=== PATIENT | male | born 1950 | race Caucasian/White ===

== ENCOUNTER 2018-04-06 12:06 | Inpatient (IN) | payer MEDICARE, SELFPAY ==
[2018-03-28 09:55] VITALS: BMI 28.2
[2018-04-06] VITALS (16 sets, daily range): BP systolic 117–156; BP diastolic 38–86; PULSE 86–101; RESP 8–95; TEMP 36.4–36.7; O2SAT 94–100; BMI 28.2
--- NOTE | 2018-04-06 11:55 | SUR.PREOP ---
1000 - pt. called pre-op to inform this RN (RN that answered the phone) that he (the pt.) was told to call pre-op and report blood sugars; pt. stated he (the pt) woke up and checked his sugar and was 190, pt. administered 15 units 70/30 at that time, at 0957 pt. rechecked blood sugar and got 186. This RN took this information to anesthesia. No further intervention needed, will check blood glucose when pt arrives to pre-op.
[2018-04-06] MEDS: LACTATED RINGERS 1,000 ML 42 ML IV ×2 (12:41→15:24)
--- NOTE | 2018-04-06 13:38 | PM.PREOP ---
Pre-operative Note Interval Note History & Physical reviewed/Exam performed by Physician: Yes Changes to H&P: No
--- NOTE | 2018-04-06 14:49 | SUR.OPER ---
Prone on spine table, head in foam head support, padded chest and pelvic supports, gel pad at knees, lower legs supported by pillows; nipples, genitalia and toes free of pressure, arms secured on foam padded arm boards at <90 degrees abduction. Tape over blanket at thigh secured to table.
[2018-04-06] MEDS: BUPIVACAINE 0.25% W/ EPI VIAL 30 ML INJ (15:00)
[2018-04-06] MEDS: BUPIVACAINE LIPOSOME 266 MG/20 ML VIAL INJ (15:33)
[2018-04-06] MEDS: CEFAZOLIN 2 GM/100 ML FROZ.PIGGY IV ×2 (16:34→21:38)
--- NOTE | 2018-04-06 16:40 | DI.RAD.S_ITS ---
PROCEDURE: XR LUMBAR SPINE 2-3V COMPARISON: None. FINDINGS: 2 limited intraoperative fluoroscopically stored images of the lumbosacral spine were obtained for intraoperative hardware localization purposes. These images are not meant for diagnostic purposes. Intraoperative findings related to a L5-S1 discectomy and fusion procedure are present. IMPRESSION: Intraoperative images obtained during the patient's lumbosacral fusion procedure. Dictated by: Arvind Gray M.D. on 04/06/2018 at 15:56 Approved by: Arvind Gray M.D. on 04/06/2018 at 15:58
--- NOTE | 2018-04-06 16:42 | P.OP_ITS ---
Operative Date/Time/Diagnoses Date of procedure: 04/06/18 Time of procedure: 14:37 Pre-op diagnosis: 1. L4-5, L5-S1 spinal stenosis 2. L4-5, L5-S1 spondylosis with radiculopathy Post-op diagnosis: same Procedure & Clinicians Procedure: 1. L5-S1 Postero-lateral and posterior interbody fusion 2. L5-S1 interbody cage placement. 3. L5-S1 decompressive laminectomy with bilateral facetecomies 4. L5-S1 Posterior non-segmental instrumentation 5. L4-5 hemilaminectomy 6. Amasa of bone marrow from iliac crest 7. Utilization of microsurgical technique and operating microscope Same procedure as scheduled: Yes Indications: Patient has been having chronic back pain and worsening lumbar radiculopathy. Patient failed multiple conservative management with worsening pain weakness and numbness in her lower extremity. Patient has been having difficulty performing activity of daily living. After discussing risks benefits of treatment options, patient elected proceed with surgery. Surgeon: Armando Rodríguez Deep Tissue Massage Therapist: Ksenia Lomas'Brien Click Yes if Unassisted: No Anesthesia Type: General Operative Notes Closure Type: primary Specimen(s): none sent Prosthetic devices, grafts, tissues, transplants, or devices: Globus Revolve screws, Rise cage Estimated Blood Loss (mL): 50 Blood products transfused: none Procedure in detail: Patient was seen in the preoperative area. Risks and benefits of the surgery was discussed with the patient. Informed consent was obtained from the patient and placed in the chart. Surgical site was marked. Patient was taken to the operative room. General anesthesia was administered. Prophylactic antibiotic was given to the patient less than 30 min before the incision was made. Patient was placed into a prone position on the Manuel table. Patient's back was then prepped and draped in the sterile fashion. Time- out was performed at this time. Using AP and lateral C-arm imaging the interval between L4-5 L5-S1 was identified and marked on patient's back. A 2 inch incision 2 in from midline was made on the left side first. The fascia was incised in line with skin incision. Globus MARS retractors was placed inside the incision and docked onto the L5 lamina. Using microsurgical technique and operating microscope, a L5 laminectomy and L5-S1 facetectomy was performed using a Kerrison rongeur. More than 75% of bilateral facet was removed in order to decompress patient's neural foramen, which rendered the L5-S1 level grossly unstable and requiring fusion at the same time. The disc space at L5-S1 was identified. And a total diskectomy was performed at L5-S1 level. The endplates were decorticated using a rasp and shaver. The total diskectomy and decortication was performed at L5-S1 level in order to to accomplish a L5-S1 fusion. The local bone from the laminectomy and facetectomy was saved for local bone grafting. After the total diskectomy and decortication was completed, Globus viacell bone graft material was combined with local bone that was harvested earlier. At this time, a separate skin is incision was made over the iliac crest. A Jamshidi needle was inserted into the iliac crest through a separate skin incision. 5 cc of bone marrow aspiration was obtained through the separate skin incision using a Jamshidi needle from the iliac crest. The bone marrow aspiration was combined with local bone and the via cell bone grafting material. The bone grafting material was placed into the L5-S1 interbody space along with a expandable cage. The cage was expanded to its maximum height using the torque limiting screwdriver. At this time the MARS retractor was redirected over the L4 lamina. Using microsurgical technique and operating microscope, a L4-5 heminectomy was performed using the Kerrison rongeur. The ligamentum flavum was also resected at the side of the hemilaminectomy for further decompression of the epidural space. At this time a mirror image incision was made on the right side. The fascia was incised in line with the skin incision. Globus MARS retractor was inserted and docked onto the L5-S1 posterolateral gutter. Using the power drill, posterior- lateral decortication was performed at L5-S1 level until bleeding cortical bone was identified. The remaining bone grafting material was placed into the L5-S1 posterior lateral gutter he order to accomplish posterolateral fusion at the L5- S1 level. Using the double C-arm technique, pedicle screws were placed into the L5 and S1 pedicles bilaterally. This was done by placing the Jamshidi needle into the pedicles, then placing the guidewires over the Jamshidi needle, and finally placing the cannulated screws over the guidewires bilaterally. After the pedicle screws were placed, 2 titanium rods was locked into the heads of the pedicle screws using locking caps and torque limiting screwdriver. After all the hardware was placed, and confirmed with AP and lateral C-arm imaging, the wound was then irrigated with sterile normal saline and packed with Ray-Michael gauze for 3 min to accomplish hemostasis. After the gauze was removed the deep fascia was closed with #1 Vicryl suture. The subcutaneous layer was closed with 2-0 Vicryl. The skin was closed with skin adán. Patient tolerated the procedure well. There were no complications. Complications: none Condition: stable Disposition: PACU Plan for aftercare: Admit to inpatient hospital
[2018-04-06] MEDS: HYDROMORPHONE 2 MG INJ 0.5 MG IV ×4 (16:55→17:16)
[2018-04-06] MEDS: hydrOXYzine 50 MG/ML INJ 25 MG IM (17:14)
[2018-04-06] MEDS: fentaNYL 100 MCG/2 ML INJ 50 MCG IV ×2 (17:21→17:29)
[2018-04-06] MEDS: LORazepam 2 MG/ML SYRINGE 0.5 MG IV (17:35)
--- NOTE | 2018-04-06 17:53 | SUR.PHASEI ---
pT AWOKE IN pacu, c/o 6/10 pain, pt medicated with dilaudid, fentanyl, vistaril and lorazepam. Pt got gradual relief and pain /10 when he left the PACU. Pt had no pain going down legs, just in back. VSS, 02 3/l nasal cannula. Pt dressing remained c/d/i. Transported up to room 214 and left in stable condition, under the care if DAREN Calhoun.
[2018-04-06] MEDS: SODIUM CHLORIDE 0.9% 1,000 ML 100 ML IV (19:03)
--- NOTE | 2018-04-06 19:04 | PC.NURSE ---
Pt admitted to AC from PACU. Drowsy/quickly falls asleep between questions. Oriented. Denies pain. IV fluids started per order. Foot SCDs. Oriented to room/call light. Pt return demonstrated. Reports history of fall 3 weeks ago. Bed alarm on.
[2018-04-06] MEDS: DOCUSATE 100 MG CAPSULE PO (20:39)
[2018-04-06] MEDS: SENNOSIDES 8.6 MG TABLET 17.2 MG PO (20:39)
[2018-04-06] MEDS: hydrOXYzine pamoate 25 MG CAPSULE PO (20:42)
[2018-04-06] MEDS: OXYCODONE IR 5 MG TABLET 10 MG PO (20:42)
[2018-04-07] VITALS (7 sets, daily range): BP systolic 103–150; BP diastolic 47–77; PULSE 76–100; RESP 14–20; TEMP 36.6–37.1; O2SAT 95–100
[2018-04-07] MEDS: OXYCODONE IR 5 MG TABLET 10 MG PO ×6 (01:10→21:10)
[2018-04-07] MEDS: hydrOXYzine pamoate 25 MG CAPSULE PO ×5 (01:12→21:04)
--- NOTE | 2018-04-07 01:51 | PC.NURSE ---
Addendum entered by Judi Verdin R.N. 04/07/18 03:17: pt only able to void 50ml on his own, post-void bladder scan resulted in 502ml. Straight cathed pt using 14fr at 0300, able to get 350ml void, pt tolerated well. Post cath bladder scan resulted in 264ml. Pt reports feeling relieved after catheterizing and agrees to keep drinking and trying to void on his own. Original Note: pt AO and receptive to care. RN on PM shift got telephone orders for straight cath and bladder scan due to pt unable to void. Bladder scan for PM shift was 550ml. At 0050 pt voided 350ml into urinal. Post-void bladder scan showed 421ml. Educated pt on straight cath and pt agreed to try and void on his own before being cathed. We freshened pt water and repositioned in bed, pt agreed to one hour to void again before straight cath. Will reassess at 0215.
[2018-04-07] MEDS: SODIUM CHLORIDE 0.9% 1,000 ML 100 ML IV (05:15)
[2018-04-07 06:22] LABS: Hematocrit 40.4 % (41-53); Hemoglobin 13.3 g/dL (13.5-17.5)
[2018-04-07] MEDS: CEFAZOLIN 2 GM/100 ML FROZ.PIGGY IV (06:28)
[2018-04-07] MEDS: GEMFIBROZIL 600 MG TABLET 300 MG PO (08:12)
[2018-04-07] MEDS: CITALOPRAM 10 MG TABLET 30 MG PO (08:12)
[2018-04-07] MEDS: DOCUSATE 100 MG CAPSULE PO ×2 (08:14→21:02)
[2018-04-07] MEDS: LISINOPRIL 20 MG TABLET 40 MG PO (08:23)
[2018-04-07] MEDS: METFORMIN HCL 500 MG TABLET 1000 MG PO ×2 (08:30→21:03)
--- NOTE | 2018-04-07 08:40 | P.PN_ITS ---
Subjective Date Patient Seen: 04/07/18 Interval history: Patient seen bedside s/p L4-5 Hemilaminectomy, L5-S1 TLIF on 04/06/[address] Rodríguez. Patient is POD #1. He is doing well, he has not yet been out of bed with therapy yet. He is in pain but the medication helps. He does not feel ready to go home today due to his pain. He denies chest pain, SOB, N/V, and numbness/tingling. Exam Vital Signs (past 8 hours): - 04/07/18 03:25 Temperature 97.8 F Pulse Rate 83 Respiratory Rate 16 Blood Pressure 132/75 Pulse Oximetry 95 Oxygen Delivery Method Nasal Cannula Oxygen Flow Rate 2 Narrative Exam Narrative: Well-developed, well-nourished, no acute distress. Alert and oriented to person, place, and time. Dressing on lumbar spine is clean, dry, and intact with no signs of drainage. Minimal erythema and generalized swelling a round the surgical site. Neurovascularly intact in bilateral lower extremities with soft and compressible calves. Range of motion intact bilateral lower extremities. Objective Labs Result Diagrams: 04/07/18 05:48 Labs: Laboratory Results - last 24 hr 04/07/18 05:48 Hgb 13.3 L Hct 40.4 L Assessment & Plan Post-op Postoperative Procedures Operation Date: 04/06/18 13:45 Actual Procedures Side Surgeon p L4-5 Hemilaminectomy, L5-S1 TLIF w/Posterior Instru. Armando Rodríguez MD 1. Patient is POD #1 s/p the above procedure-continue with pain management, up with therapy, bowel regiment. Possible discharge tomorrow if cleared by PT and pain is controlled. Quality VTE Deep Vein Thrombosis/Pulmonary Embolism Present on Admission: No
--- NOTE | 2018-04-07 08:45 | CM.DANOTE ---
DCP: Case received, EMR reviewed and met with patient. Introduced self and role. DCP template completed with information currently available. Patient is a 67 year old male who admitted yesterday afternoon to the care of the surgical team. PCP: Dr. Villarreal Payer: confirmed: Medicare. Patient came to hospital for procedure. Had Postero-lateral, posterior interbody fusion of L4-5, L5-S1. Patient has history of Diabetes, and had been having pain while walking prior to surgery. Lives in [facility] with his family. Confirmed that Surya is one of the family members at home. Patient stated that he is fairly independent, does have a walker that he uses at home. Has not yet been up to work with physical therapy. P: DCP to continue to follow. Will consult with physical therapy team to see how patient progresses post surgery. Should be able to go home when stable. Gris Garcia RN/Caustic Purification Operator
--- NOTE | 2018-04-07 09:40 | PT.IIE ---
Current Diagnoses Other spondylosis with radiculopathy, lumbar region (04/06/18) Spinal stenosis, lumbar region without neurogenic claudication (04/06/18) Surgery Performed Operation Date: 04/06/18 13:45 Actual Procedures p L4-5 Hemilaminectomy, L5-S1 TLIF w/Posterior Instru. - Armando Rodríguez MD Surgical History (Last Updated 03/28/18 @ 10:01 by Jacklyn Kelly RN) S/P cervical spinal fusion (Acute 09/03/15) Medical History (Last Updated 03/28/18 @ 10:22 by Jacklyn Kelly RN) Amputation toe (Acute ~2012) DVT (deep venous thrombosis) (Acute ~2010) Depression (Acute) Diabetes (Acute) HTN (hypertension) (Acute) Hyponatremia (Acute) Pneumonia (Acute) Pneumothorax, right (Acute ~2013) Physical Therapy Inpatient Evaluation/Re-Eval M1 PT/OT-IP Prior Functional Status Start: 04/07/18 09:44 Freq: NEEDED Status: Active Protocol: Document 04/07/18 09:08 [facility] (Rec: 04/07/18 09:54 [facility] [id number]) Medical Review Prior Functional Status Medical History Reviewed Yes Mobility and Gait indep. ambulator without device; retired 1 yr ago due to back pain Activities of Daily Living and IADL's indep. I/ADLs but admits to driving only 3 miles or so due to low back pain Social History Household Members family children Living Arrangements House Number of Floors (Floors) Two Floors Number of Stairs To Enter/Railing? no steps to enter into lower level where pt lives (family lives upstairs); Tub/shower is upstairs but access to a toilet on his lower level. Home Environment Standard Height Toilet Tub/Shower Home Equipment Front Wheel Walker Employment Status Retired Additional Social History Comment Pt underwent L4-5 hemilaminectomy, L5-S1 TLIF on 04/06/18. Pt notes that family not home during the morning but able to assist in the afternoon and evening. M2 PT-IP Current Condition Start: 04/07/18 09:44 Freq: NEEDED Status: Active Protocol: Document 04/07/18 09:08 [facility] (Rec: 04/07/18 09:54 [facility] [id number]) Physical Therapy Current Condition Current Condition Evaluation Date 04/07/18 Treatment Diagnosis L4-5 hemilaminectomy, L5-S1 TLIF 04/06/18, impaired mobility Onset Date 04/06/18 Precautions Lumbar Precautions Log Roll No Twisting Limit Bending Lifting Restriction of 10 lbs Gait Belt above Incisional Area Weight Bearing Status Weight Bearing Status Weight Bear as Tolerated M3 PT-IP Subjective Start: 04/07/18 09:44 Freq: NEEDED Status: Active Protocol: Document 04/07/18 09:08 [facility] (Rec: 04/07/18 09:54 [facility] [id number]) Subjective Physical Therapy Visit Type Type Initial Evaluation Visit Start Time 09:08 Visit Stop Time 09:40 Total Visit Minutes 32 Number of FUNERAL GREETER Visits 0 Physical Therapy Visit Comments Patient Comments pt states that his pain is about 4/10, no spasms. Patient Goals to be able to do yard work again Therapy Pain Assessment Pain When Pain Assessed At Rest Pain Present Pain Present Pain Reported Location Lower Back Intensity 4 Scale Used Numeric (1 - 10) M4 PT-IP Mobility and Gait Start: 04/07/18 09:44 Freq: NEEDED Status: Active Protocol: Document 04/07/18 09:08 [facility] (Rec: 04/07/18 09:54 [facility] [id number]) PT-Bed Mobility Assessment Rolling Type of Rolling Log Rolling Level of Assist Contact Guard Assistance Supine to Sit Supine to Sit Contact Guard Assistance Scooting Scooting to Edge of Bed Standby Assistance PT-Transfer Assessment Sit to and From Stand Sit to and from Stand Standby Assistance Equipment Transfer Assistive Device Gait Belt Front Wheeled Walker Transfers Transfer Destination Chair Transfer Technique Stand Step Pivot Transfer Ability Level of Assist Standby Assistance Comments Mobility Comments BP 136/67 prior to mobility Gait Assessment Gait Gait Assistance Required: Standby Assistance Distance (Feet) 25 Assistive Devices Assistive Device Gait Belt Front Wheeled Walker Gait Deviations General Gait Pattern Antalgic Decreased Stride Length Decreased Feet Clearance Wide Based Gait Factors Limiting Gait Function Factors Limiting Gait Function Decreased Activity Tolerance Decreased Sensation Decreased Strength Pain Poor Balance Comments Gait Comments Pt also able to urinate in standing in BR without assistance, 300 cc output (TRANSLATION DIRECTOR notified) PT-Balance Assessment Sitting Balance and Reactions Static Sitting Balance Ability Good Dynamic Sitting Balance Ability Good Standing Balance and Reactions Static Standing Balance Ability Fair Dynamic Standing Balance Ability Fair Device Used FWW M5 PT-IP Objective Assessments Start: 04/07/18 09:44 Freq: NEEDED Status: Active Protocol: Document 04/07/18 09:08 [facility] (Rec: 04/07/18 09:54 [facility] [id number]) Orientation Orientation/Cognition Level of Alertness Alert Gross Range of Motion Lower Extremity ROM Impairments limited knee flexion due to pain Strength Comments Strength Comments no formal MMT, but able to lift each heel off of bed, and peform heel slides to 75 deg but limited by pain Coordination Assessment Gross Coordination Gross Coordination WNL Sensation Assessment Sensation Light Touch Impaired Comments Sensation Comments impaired B feet d/t diabetes per pt, WNL in lower calf B and superiorly up LEs M6 PT-IP Treatment Start: 04/07/18 09:44 Freq: NEEDED Status: Active Protocol: Document 04/07/18 09:08 [facility] (Rec: 04/07/18 09:54 [facility] [id number]) Physical Therapy Treatment Education Education Provided Precautions Post-Op Packet Safety Other Treatments Other Treatment Performed post-op packet provided M7 PT-IP Assessment and Plan Start: 04/07/18 09:44 Freq: NEEDED Status: Active Protocol: Document 04/07/18 09:08 [facility] (Rec: 04/07/18 09:54 [facility] [id number]) PT Summary Assessment and Plan Potential Rehabilitation Potential Good Status of Condition at Evaluation Stable Summary Impairments Pain ROM Strength Balance Bed Mobility Transfers Gait Activity Tolerance Assessment Summary POD #1. Pt able to perform a log roll with safe technique with verbal cuing, and tolerated upright position and gait well, although did still report pain about 4/10 with gait. Pt requires the use of a FWW, but does have one at home upon d/c. Pt at this time is not ambulating household distances, but is a willing and motivated participant with physical therapy. Expect pt to be able to d/c home when medically stable, but will need to be indep with mobility , as he will be home alone at times during the week days. Goals Bed Mobility Goal Independent Transfer Goal Independent Gait Goal Standby Assistance Front Wheel Walker Gait Distance 150 Days to Meet Goals 3 Frequency of Treatment Frequency Of Treatment Twice a Day Treatment Plan Physical Therapy Treatment Plan Bed Mobility Training Transfer Training Gait Training Therapeutic Exercise Balance Retraining Post Op Education Discharge Planning Hot or Cold Pack Neuromuscular Re-ed Other Recommendations and Next Treatment prog. gait, review precautions Focus and log roll Recommendations To Nursing Amount of Assist Needed 1 Person Assist Discharge Recommendations PT Discharge Recommendations Home with Assistance
--- NOTE | 2018-04-07 09:48 | PC.NURSE ---
Addendum entered by J Luis Sanchez R.N. 04/07/18 13:59: Pt back to bed after working with O.TGlenn Manju. Pt. karena. activity. Pain med given of good effect. Dressing CDI old drainage dry. Original Note: Pt alert and oriented, asking appropriate question. P.A. in to discuss plan for the day. PT Pravin to be working with Pt. Back Dressing intact. Meds as ordered.
[2018-04-07] MEDS: INSULIN ASPART 100 UNIT/ML INSULN PEN SUBCUT (13:00)
--- NOTE | 2018-04-07 13:45 | OT.IP.EVAL ---
Current Diagnoses Other spondylosis with radiculopathy, lumbar region (04/06/18) Spinal stenosis, lumbar region without neurogenic claudication (04/06/18) Surgery Performed Operation Date: 04/06/18 13:45 Actual Procedures p L4-5 Hemilaminectomy, L5-S1 TLIF w/Posterior Instru. - Armando Rodríguez MD Past Medical History (Last Updated 03/28/18 @ 10:22 by Jacklyn Kelly, RN) Amputation toe (Acute ~2012) DVT (deep venous thrombosis) (Acute ~2010) Depression (Acute) Diabetes (Acute) HTN (hypertension) (Acute) Hyponatremia (Acute) Pneumonia (Acute) Pneumothorax, right (Acute ~2013) Surgical History (Last Updated 03/28/18 @ 10:01 by Jacklyn Kelly RN) S/P cervical spinal fusion (Acute 09/03/15) Occupational Therapy Inpatient Evaluation/Re-Eval M1 PT/OT-IP Prior Functional Status Start: 04/07/18 09:44 Freq: NEEDED Status: Active Protocol: Document 04/07/18 13:45 PJM (Rec: 04/07/18 17:53 PJM [id number]) Medical Review Prior Functional Status Medical History Reviewed Yes Diet/Fluid Consistency Regular Communication WNL Mobility and Gait indep. ambulator without device; retired 1 yr ago due to back pain Activities of Daily Living and IADL's independent with all self care , IADLS, drives but admits to driving only 3 miles or so due to low back pain Prior Functional Level (Other details) Pt lives in lower level of home with son, DIL, and 2 teenage granddaughters upstairs. Social History Household Members family children Living Arrangements House Number of Floors (Floors) Two Floors Number of Stairs To Enter/Railing? no steps to enter into lower level where pt lives (family lives upstairs); Tub/shower is upstairs but access to a toilet, sink, kitchenette on his lower level. Home Environment Standard Height Toilet Tub/Shower Home Equipment Front Wheel Walker Employment Status Retired Additional Social History Comment Pt underwent L4-5 hemilaminectomy, L5-S1 TLIF on 04/06/18. Pt notes that family not home during the morning but able to assist in the afternoon and evening with cooking, shopping , laborer [employer]. M2 OT-IP Current Condition Start: 04/07/18 17:31 Freq: Status: Active Protocol: Document 04/07/18 13:45 PJM (Rec: 04/07/18 17:53 PJM [id number]) Occupational Therapy Current Condition Current Condition Evaluation Date 04/07/18 Treatment Diagnosis decreased self care,functional mobility due to L4-5 socorro- lami w/TLIF 04/06/18 Post Operative Precautions Lumbar Precautions Log Roll No Twisting Limit Bending Lifting Restriction of 10 lbs Gait Belt above Incisional Area M3 OT- IP Subjective and Pain Start: 04/07/18 17:31 Freq: Status: Active Protocol: Document 04/07/18 13:45 PJM (Rec: 04/07/18 17:53 PJM [email or web address]) OT- Subjective Occupational Therapy Visit Type Type Initial Evaluation Visit Start Time 13:07 Visit Stop Time 13:45 Total Visit Minutes 38 Occupational Therapy Visit Comments Patient Comments I have had neck surgery before. Patient/Caregiver Goals to go home and complete daily activities with less back pain OT Pain Assessment Pain When Pain Assessed After Treatment Pain Present Pain Present Pain Reported Location Lower Back Intensity 4 Scale Used Numeric (1 - 10) Description Aching Acute Pain Behaviors Facial Grimacing Guarding Management Techniques Distraction Re-positioning Timing of Activity with Medications M4 OT- IP ADL's Start: 04/07/18 17:31 Freq: Status: Active Protocol: Document 04/07/18 13:45 PJM (Rec: 04/07/18 17:53 PJM [id number]) OT [id number] General Evaluation Self-Feeding Ability Independent OT ADL-Grooming General Evaluation Grooming Ability Independent Comments OT Grooming Comments provided education re: body mechanics OT ADL-Oral Care Devices Oral Care Devices Toothbrush Comments Oral Care Comments provided education re: body mechanics OT ADL-Dressing General Eval Upper Body Dressing Ability Independent Assistive Devices Dressing Assistive Devices Belt Lacer Sock Aid Comments OT Dressing Comments Provided expense clerk and sock aid to pt and education re: their use. Pt verbalizes and demonstrates understanding of new tool use. OT ADL-Toileting Devices Toileting Assistive Devices Raised Toilet Seat Comments OT Toileting Comments provided education re: body mechanics and pt verbalizes understanding, pt plan to obtain RTS OT ADL-Bathing Comments OT Bathing Comments pt would like to shower here with nursing staff tomorrow. Provided education re: body mechanics and gave pt long bath sponge. Strongly recommend pt obtain shower seat with back and armrests as he has hx of dizziness in shower when eyes closed prior to admit. Provided resource information M5 OT- IP IADL's Start: 04/07/18 17:31 Freq: Status: Active Protocol: Document 04/07/18 13:45 PJM (Rec: 04/07/18 17:53 PJ [id number]) OT-Instrumental Activities of Daily Living Deficits IADL Deficits Identified Deficits Home Safety Awareness Awareness of Need for Assistance at Home Good Awareness Ability to Problem Solve Emergency Able to Problem Solve Situations Medication Management Medication Management No Deficits Identified Money Management Money Management No Deficits Identified Meal Preparation Meal Preparation Caregiver Provides Assist Meal Preparation Comments family can assist PRN Take Off Worker Take Off Worker Caregiver Provides Assist Take Off Worker Comments family can assist PRN Driving Driving Caregiver Provides Assist Driving Comments family to assist until pt able M6 OT- IP Functional Cognition Start: 04/07/18 17:31 Freq: Status: Active Protocol: Document 04/07/18 13:45 PJM (Rec: 04/07/18 17:53 PJ [email or web address]) Cognitive Factors Limiting Selfcare Function Cognitive Ability Level of Alertness Alert Patient Orientation Name Age Birthday Month Date Year Day of Week Place Situation Attention Span Ability Capable of Focused Attention Capable of Sustained Attention Ability to Follow Commands Able to Follow One Step Commands Able to Follow Multi-Step Commands Memory Description No Deficits Noted Safety Awareness No Deficits Noted Problem Solving Ability No deficits Noted Cognitive Comments Cognitive Assessment Comments Pt verbalizes and demonstrates understanding of all education today. OT- Vision and Hearing OT- Hearing Assessment OT- Hearing Assessment WFL OT- Vision Assessment Visual Acuity WFL M7 OT- IP Mobility and Balance Start: 04/07/18 17:31 Freq: Status: Active Protocol: Document 04/07/18 13:45 PJM (Rec: 04/07/18 17:53 PJ [email or web address]) OT- Bed Mobility Assessment Rolling Type of Rolling Roll to Left Level of Assistance Standby Assistance Sit to Supine Sit to Supine Assist Contact Guard Assistance Scooting Scooting to Edge of Bed Standby Assistance OT-Transfer Assessment Sit to and From Stand Sit to and from Stand Contact Guard Assistance Transfers Transfer Ability Contact Guard Assistance Technique Transfer Destination Bed Transfer Technique Stand Step Pivot Devices Transfer Assistive Devices Gait Belt Front Wheeled Walker Comments Mobility Comments Provided further education re: log rolling into bed. OT- Gait Assessment Gait Gait Assistance Required: Contact Guard Assist Distance (Feet) 15 Assistive Devices Assistive Device Gait Belt Front Wheeled Walker OT- Balance Assessment Sitting Balance and Reactions Static Sitting Balance Ability Good Dynamic Sitting Balance Ability Good Standing Balance and Reactions Static Standing Balance Ability Good M8 OT- IP Objective Assessments Start: 04/07/18 17:31 Freq: Status: Active Protocol: Document 04/07/18 13:45 PJM (Rec: 04/07/18 17:53 PJM [email or web address]) OT Gross Range of Motion Upper Extremity Range of Motion Assessment Within Functional Limits OT Strength Upper Extremity Strength Assessment Left Impaired Shoulder R WFL L 3+/5 Elbow R WFL L 3/5 flexion/ extension Wrist R WFL L 3/5 Hand R WFL L 3+/5 Hand Cost Manager Strength Hand Dominance Right Comments Strength Comments RUE has significant mm atrophy , especially distal to elbow and in hand instrinsics with significant weakness noted. OT- Coordination Assessment Upper Extremity Finger to Nose Test Left UE Impaired Finger Tapping Test Left UE Impaired Comments Coordination Comments LUE gross/fine coordination impaired by weakness and sensory loss OT-Muscle Tone Assessment Muscle Tone WNL Yes OT Sensation Assessment Comments Summary Comments LUE has decreased lt touch distal to elbow and both volar /dorsal surface. Edema Edema Absent M9 OT- IP Assessment and Plan Start: 04/07/18 17:31 Freq: Status: Active Protocol: Document 04/07/18 13:45 PJM (Rec: 04/07/18 17:53 PJM [email or web address]) OT Summary Assessment and Plan Potential Rehabilitation Potential Good Analytic Complexity at Evaluation Low Summary Progress Towards Goals Safe For Discharge Goals Met Assessment Summary Low complexity OT assessment and all education completed in one visit re: lumbar spine precautions, posture, chair selection, adapted ADL techniques, bathroom safety equipt options and car transfers. Pt verbalizes and demonstrates understanding. No further OT services needed. Pt hopes to d/c home tomorrow with assist from family as needed. Frequency of Treatment Frequency Of Treatment Discharge Discharge Recommendations OT Discharge Recommendations Home with Assistance Home Equipment Needs shower seat with back and armrests
--- NOTE | 2018-04-07 14:15 | PT.IPTN ---
Current Diagnoses Other spondylosis with radiculopathy, lumbar region (04/06/18) Spinal stenosis, lumbar region without neurogenic claudication (04/06/18) Surgery Performed Operation Date: 04/06/18 13:45 Actual Procedures p L4-5 Hemilaminectomy, L5-S1 TLIF w/Posterior Instru. - Armando Rodríguez MD Physical Therapy Treatment Note M2 PT-IP Current Condition Start: 04/07/18 09:44 Freq: NEEDED Status: Active Protocol: Document 04/07/18 09:08 RCC (Rec: 04/07/18 09:54 RCC [id number]) Physical Therapy Current Condition Current Condition Evaluation Date 04/07/18 Treatment Diagnosis L4-5 hemilaminectomy, L5-S1 TLIF 04/06/18, impaired mobility Onset Date 04/06/18 Precautions Lumbar Precautions Log Roll No Twisting Limit Bending Lifting Restriction of 10 lbs Gait Belt above Incisional Area Weight Bearing Status Weight Bearing Status Weight Bear as Tolerated M3 PT-IP Subjective Start: 04/07/18 09:44 Freq: NEEDED Status: Active Protocol: Document 04/07/18 14:10 GGD (Rec: 04/07/18 16:09 GGD [email or web address]) Subjective Physical Therapy Visit Type Type Treatment Note Visit Start Time 13:45 Visit Stop Time 14:10 Total Visit Minutes 25 Number of TUBE MAKING MACHINE OPERATOR Visits 1 Physical Therapy Visit Comments Patient Comments pt states he just got back to bed. Therapy Pain Assessment Pain When Pain Assessed At Rest Pain Present Pain Present Pain Reported Location Lower Back Intensity 3 Scale Used Numeric (1 - 10) M4 PT-IP Mobility and Gait Start: 04/07/18 09:44 Freq: NEEDED Status: Active Protocol: Document 04/07/18 14:10 GGD (Rec: 04/07/18 16:09 GGD [email or web address]) PT-Bed Mobility Assessment Rolling Type of Rolling Log Rolling Roll to Right Level of Assist Contact Guard Assistance Supine to Sit Supine to Sit Contact Guard Assistance Sit to Supine Sit to Supine Contact Guard Assistance Bedrails Scooting Scooting to Edge of Bed Standby Assistance PT-Transfer Assessment Sit to and From Stand Sit to and from Stand Standby Assistance Equipment Transfer Assistive Device Gait Belt Front Wheeled Walker Transfers Transfer Destination Bed Transfer Ability Level of Assist Standby Assistance Gait Assessment Gait Gait Assistance Required: Standby Assistance Distance (Feet) 100 Able to Maintain Weight Bearing Status Yes During Gait Assistive Devices Assistive Device Gait Belt Front Wheeled Walker Gait Deviations General Gait Pattern Antalgic Decreased Stride Length Decreased Feet Clearance Wide Based Gait Factors Limiting Gait Function Factors Limiting Gait Function Decreased Activity Tolerance Decreased Sensation Decreased Strength Pain Poor Balance Comments Gait Comments Pt need min cues for posture with gait. M5 PT-IP Objective Assessments Start: 04/07/18 09:44 Freq: NEEDED Status: Active Protocol: Document 04/07/18 09:08 RCC (Rec: 04/07/18 09:54 RCC [id number]) Orientation Orientation/Cognition Level of Alertness Alert Gross Range of Motion Lower Extremity ROM Impairments limited knee flexion due to pain Strength Comments Strength Comments no formal MMT, but able to lift each heel off of bed, and peform heel slides to 75 deg but limited by pain Coordination Assessment Gross Coordination Gross Coordination WNL Sensation Assessment Sensation Light Touch Impaired Comments Sensation Comments impaired B feet d/t diabetes per pt, WNL in lower calf B and superiorly up LEs M6 PT-IP Treatment Start: 04/07/18 09:44 Freq: NEEDED Status: Active Protocol: Document 04/07/18 14:10 GGD (Rec: 04/07/18 16:09 GGD [email or web address]) Physical Therapy Treatment Education Education Provided Precautions M7 PT-IP Assessment and Plan Start: 04/07/18 09:44 Freq: NEEDED Status: Active Protocol: Document 04/07/18 14:10 GGD (Rec: 04/07/18 16:09 GGD [email or web address]) PT Summary Assessment and Plan Summary Assessment Summary Pt able to progress gait distance. He was stable with gait, but need min cues for UE support on FWW and posture. He did use bed rail for bed mobility with SBA. Pt does have stairs at home, but and walk outside to avoid inside stairs. Pt safe for home D/C when medically stable. Frequency of Treatment Frequency Of Treatment Twice a Day Treatment Plan Physical Therapy Treatment Plan Bed Mobility Training Transfer Training Gait Training Therapeutic Exercise Balance Retraining Post Op Education Discharge Planning Hot or Cold Pack Neuromuscular Re-ed Other Recommendations and Next Treatment prog. gait, review precautions Focus and log roll Recommendations To Nursing Amount of Assist Needed 1 Person Assist Discharge Recommendations PT Discharge Recommendations Home with Assistance
[2018-04-07] MEDS: ACETAMINOPHEN 325 MG TABLET 650 MG PO (16:31)
[2018-04-07] MEDS: SENNOSIDES 8.6 MG TABLET 17.2 MG PO (21:04)
[2018-04-07] MEDS: SODIUM CHLORIDE 0.9% FLUSH 10 ML IV (21:17)
--- NOTE | 2018-04-07 22:47 | PC.NURSE ---
Dressing changed today per order. Rgt lateral incision healing with adán, no sign of drainage or infection. Lft lateral incision has covering, no sign of drainage or infection. Island dressing on wound. Pt tends to still have high level of pain and has been on prn oxycodone 10mg 7/10 pain level. BG 181 no insulin given. Pt is calm, co-operative and pleasant. Has bed alarm and uses call light appropriately.
[2018-04-08] MEDS: hydrOXYzine pamoate 25 MG CAPSULE PO ×3 (01:46→12:05)
[2018-04-08] MEDS: OXYCODONE IR 5 MG TABLET 10 MG PO ×3 (01:46→12:05)
[2018-04-08 05:00] VITALS: BP 144/73; PULSE 88; RESP 12; TEMP 37.1; O2SAT 98
[2018-04-08 07:20] VITALS: BP 139/81; PULSE 89; RESP 18; TEMP 37; O2SAT 96
[2018-04-08] MEDS: SODIUM CHLORIDE 0.9% FLUSH 10 ML IV (07:35)
[2018-04-08] MEDS: MAGNESIUM HYDROXIDE 30 ML UDC PO (07:35)
[2018-04-08] MEDS: CITALOPRAM 10 MG TABLET 30 MG PO (08:47)
[2018-04-08] MEDS: DOCUSATE 100 MG CAPSULE PO (08:47)
[2018-04-08] MEDS: LISINOPRIL 20 MG TABLET 40 MG PO (08:47)
[2018-04-08] MEDS: GEMFIBROZIL 600 MG TABLET 300 MG PO (08:47)
[2018-04-08] MEDS: METFORMIN HCL 500 MG TABLET 1000 MG PO (08:47)
[2018-04-08] MEDS: INSULIN ASPART 100 UNIT/ML INSULN PEN SUBCUT (08:48)
[2018-04-08] MEDS: INSULIN NPH/REG 70-30 100 UNIT/ML 3ML VIAL 25 UNIT SUBCUT (09:30)
--- NOTE | 2018-04-08 09:59 | PM.PN.1 ---
Subjective Date Patient Seen: 04/08/18 Time Patient Seen: 09:59 Interval history: Patient now postop day 2 L4-5 hemilaminectomy and L5-S1 TLIF by Dr. Rodríguez. Patient had a moderate amount of pain yesterday but made excellent progress during the day and over night and states he feels reasonably comfortable now. Of mild back discomfort and no remaining leg pain. He feels ready to go home. Exam Vital Signs (past 8 hours): - 04/08/18 05:00 04/08/18 07:20 Temperature 98.8 F 98.6 F Pulse Rate 88 89 Respiratory Rate 12 18 Blood Pressure 144/73 H 139/81 Pulse Oximetry 98 96 Oxygen Delivery Method Room Air Oxygen Flow Rate 0 Narrative Exam Narrative: Patient is awake alert oriented and conversant in no obvious distress lying in his hospital bed. Distal neurovascular examination is grossly intact. The patient is afebrile and vital signs are stable. Objective Labs Result Diagrams: 04/07/18 05:48 Assessment & Plan Assessment & Plan narrative: Patient is postop day 2 L4-5 hemilaminectomy and L5-S1 TLIF. Anticipated discharge today appears reasonable. Patient has made excellent progress and will be discharged to home. Quality VTE Deep Vein Thrombosis/Pulmonary Embolism Present on Admission: No
--- NOTE | 2018-04-08 10:57 | CM.DPC ---
DCP Cont: Patient is to be discharged home today. Met briefly with patient, signed updated IMM form. He mentioned that he does have someone available that will pick him up. Gris Garcia RN/Early Childhood Specialist
--- NOTE | 2018-04-08 11:03 | PT.IPTN ---
Current Diagnoses Other spondylosis with radiculopathy, lumbar region (04/06/18) Spinal stenosis, lumbar region without neurogenic claudication (04/06/18) Surgery Performed Operation Date: 04/06/18 13:45 Actual Procedures p L4-5 Hemilaminectomy, L5-S1 TLIF w/Posterior Instru. - Armando Rodríguez MD Physical Therapy Treatment Note M2 PT-IP Current Condition Start: 04/07/18 09:44 Freq: NEEDED Status: Active Protocol: Document 04/07/18 09:08 RCC (Rec: 04/07/18 09:54 RCC [id number]) Physical Therapy Current Condition Current Condition Evaluation Date 04/07/18 Treatment Diagnosis L4-5 hemilaminectomy, L5-S1 TLIF 04/06/18, impaired mobility Onset Date 04/06/18 Precautions Lumbar Precautions Log Roll No Twisting Limit Bending Lifting Restriction of 10 lbs Gait Belt above Incisional Area Weight Bearing Status Weight Bearing Status Weight Bear as Tolerated M3 PT-IP Subjective Start: 04/07/18 09:44 Freq: NEEDED Status: Active Protocol: Document 04/08/18 09:55 CLB (Rec: 04/08/18 11:03 CLB [id number]) Subjective Physical Therapy Visit Type Type Treatment Note Visit Start Time 09:55 Visit Stop Time 10:10 Total Visit Minutes 15 Number of DANCING MASTER Visits 2 Physical Therapy Visit Comments Patient Comments Pt needing to use the bathroom . Therapy Pain Assessment Pain When Pain Assessed At Rest Location Lower Back Intensity 2 Scale Used Numeric (1 - 10) M4 PT-IP Mobility and Gait Start: 04/07/18 09:44 Freq: NEEDED Status: Active Protocol: Document 04/08/18 09:55 CLB (Rec: 04/08/18 11:03 CLB [id number]) PT-Bed Mobility Assessment Rolling Type of Rolling Log Rolling Roll to Right Level of Assist Standby Assistance Supine to Sit Supine to Sit Contact Guard Assistance Sit to Supine Sit to Supine Contact Guard Assistance Bedrails Scooting Scooting to Edge of Bed Standby Assistance PT-Transfer Assessment Sit to and From Stand Sit to and from Stand Standby Assistance Transfers Transfer Destination Chair Toilet Transfer Ability Level of Assist Standby Assistance Gait Assessment Gait Gait Assistance Required: Standby Assistance Distance (Feet) 125 Able to Maintain Weight Bearing Status Yes During Gait Assistive Devices Assistive Device Gait Belt Front Wheeled Walker Gait Deviations General Gait Pattern Antalgic Decreased Stride Length Decreased Feet Clearance Wide Based Gait Factors Limiting Gait Function Factors Limiting Gait Function Decreased Activity Tolerance Decreased Sensation Decreased Strength Pain Poor Balance Comments Gait Comments Pt need min cues for posture with gait. M5 PT-IP Objective Assessments Start: 04/07/18 09:44 Freq: NEEDED Status: Active Protocol: Document 04/07/18 09:08 RCC (Rec: 04/07/18 09:54 RCC [id number]) Orientation Orientation/Cognition Level of Alertness Alert Gross Range of Motion Lower Extremity ROM Impairments limited knee flexion due to pain Strength Comments Strength Comments no formal MMT, but able to lift each heel off of bed, and peform heel slides to 75 deg but limited by pain Coordination Assessment Gross Coordination Gross Coordination WNL Sensation Assessment Sensation Light Touch Impaired Comments Sensation Comments impaired B feet d/t diabetes per pt, WNL in lower calf B and superiorly up LEs M6 PT-IP Treatment Start: 04/07/18 09:44 Freq: NEEDED Status: Active Protocol: Document 04/07/18 14:10 GGD (Rec: 04/07/18 16:09 GGD [email or web address]) Physical Therapy Treatment Education Education Provided Precautions M7 PT-IP Assessment and Plan Start: 04/07/18 09:44 Freq: NEEDED Status: Active Protocol: Document 04/08/18 09:55 CLB (Rec: 04/08/18 11:03 CLB [id number]) PT Summary Assessment and Plan Summary Assessment Summary Pt is CGA for bed mobility and SBA for sit-stand and gait. Pt remains stable with standing at sink to wash hands and during ambulation. Pt recalled 3/3 back precautions. Pt seems able to d/c home with assist when medically stable. Goals Bed Mobility Goal Independent Transfer Goal Independent Gait Goal Standby Assistance Front Wheel Walker Gait Distance 150 Days to Meet Goals 3 Frequency of Treatment Frequency Of Treatment Twice a Day Treatment Plan Physical Therapy Treatment Plan Bed Mobility Training Transfer Training Gait Training Therapeutic Exercise Balance Retraining Post Op Education Discharge Planning Hot or Cold Pack Neuromuscular Re-ed Other Recommendations and Next Treatment prog. gait, review precautions Focus and log roll Recommendations To Nursing Amount of Assist Needed 1 Person Assist Discharge Recommendations PT Discharge Recommendations Home with Assistance
--- NOTE | 2018-04-08 13:09 | PC.NURSE ---
Discharge pt states pain controlled with oxy and vistaril. PIV removed prior to d/c. Pt states he has f/u apt scheduled with ortho office. aware to contact MD with any additional questions or concerns. D/c information provided to pt. left in w/c with [employer] escort and son. Pt states he took all belongings with him.
== END 2018-04-08 12:05 | disposition home or self-care (01) | DRG 455 ==
PROVIDERS: Admitting Provider Orthopaedic Surgery Orthopaedic Surgery of the Spine; Family Provider Family Medicine; PCP Family Medicine; Visit Provider Orthopaedic Surgery Orthopaedic Surgery of the Spine
PROC: 0SG30AJ Fusion of Lumbosacral Joint with Interbody Fusion Device, Posterior Approach, Anterior Column, Open Approach (ICD-10-PCS; principal; 2018-04-06 13:45)
DX: M48.07 Spinal stenosis, lumbosacral region (principal); M48.061 Spinal stenosis, lumbar region without neurogenic claudication; M54.17 Radiculopathy, lumbosacral region; I10 Essential (primary) hypertension; E78.5 Hyperlipidemia, unspecified; K21.9 Gastro-esophageal reflux disease without esophagitis; E10.40 Type 1 diabetes mellitus with diabetic neuropathy, unspecified; Z79.4 Long term (current) use of insulin
CPT/HCPCS: 36415; 72100; 76000; 82962; 85014; 85018; 94760; 97116; 97161; 97165; 97530; 97535; C1776; C9290; J0330; J0690; J1100; J1170; J2060; J2405; J2704; J3010; J3410